=== PATIENT | male | born 1940 | race Caucasian/White ===

== ENCOUNTER 2016-10-21 23:50 | Inpatient (IN) | payer MEDICARE, OTHER ==
--- NOTE | ~2016-10-21 | CT55 ---
[facility] A Service of [facility] & [facility] RADIOLOGY TEXT RESULTS PATIENT: SILVIANO VELAZQUEZ LOCATION: A 319-01 : 41 UNIT #: [id number] AGE: [address]: Tamara Benton MD SEX: M ORDER DR: [id number] [facility] [address] [facility]. [place], [place] [address] [id number] I MR#: [id number] Acc #: [id number] NAME: SILVIANO VELAZQUEZ. : 1940 SEX: M STUDY DATE/TIME: 10/22/2016 5:55 UNIT: CEDOF ROOM: [id number] STUDY DESCRIPTION: CT Chest W Con Attending Physician: Tamara Benton M.D. Ordering Physician: Nick Roberson M.D. Primary Care Physician: Katerina Seth M.D. MEDICAL IMAGING REPORT This report is preliminary unless electronic signature is present EXAM CT chest with IV contrast COMPARISON December 27, 2015 and February 05, 2012. INDICATION 76-year-old male with lethargy and fever for 2 days. Prior CABG. COPD. TECHNIQUE This CT examination was performed with one or more of the following radiation dose reduction techniques: automatic exposure control, adjustment of mA and/or kV according to patient size, and iterative reconstruction. FINDINGS Axial CT imaging of the chest was performed after IV administration of 100 mL Isovue-370. Coronal and sagittal reformats were constructed. For findings below the diaphragm, please see separately dictated report of CT abdomen and pelvis with IV contrast on the same date. There is minimal bilateral gynecomastia. There are calcified mediastinal and hilar lymph nodes. No evidence of adenopathy. No evidence of sternotomy dehiscence. No acute fractures or suspicious osseous lesions. There is a nodular appearing density along the wall of the right trachea which have configuration suggesting adherent secretion on the coronal reformat. This appears new from 2016. Detailed evaluation of the lungs is limited by motion. There is no evidence of a pneumothorax. There is no significant pleural effusion. Minimal dependent atelectasis noted in the left lung base. There are questionable bronchoalveolar distribution opacities, seen primarily within the lingula and left lower lobe which may be artifactual and related to motion. Band-like opacity in the right upper lobe abutting the major fissure has configuration suggesting STS. [facility] A Service of [facility] RADIOLOGY TEXT RESULTS PATIENT: SILVIANO VELAZQUEZ LOCATION: [facility] 319-01 : 41 UNIT #: [id number] AGE: [address]: Tamara Benton MD SEX: M ORDER DR: atelectasis. Cardiomegaly is noted. There are changes of CABG. Coronary artery calcifications are noted. There is normal caliber of the thoracic aorta which is diffusely calcified. Normal caliber of the main pulmonary artery. The exam is not optimized for evaluation of peripheral pulmonary embolus but there is no evidence of central pulmonary embolus. Calcified granuloma in the right lower lobe. IMPRESSION 1. Detailed evaluation of the lungs is significantly limited by motion. There is no evidence of consolidative pneumonia, pneumothorax or significant pleural effusion. There are questionable tree-in-bud/bronchoalveolar distribution opacities seen multifocally within the lingula and left lower lobe perhaps reflecting an acute bronchiolitis or artifactually related to motion. Again there is no evidence of consolidative pneumonia. 2. Cardiomegaly and changes of CABG. No convincing evidence of pulmonary edema. 3. Nodular opacity within the trachea has a configuration suggesting adherent secretion. If definitive evaluation is desired, endoscopy could be performed or [address] imaging after resolution of acute illness. For findings below the diaphragm, please see separately dictated report CT abdomen and pelvis on the same date. Dictated by... Earl Caruso M.D. THIS IS AN ELECTRONICALLY VERIFIED REPORT Earl Caruso M.D. at 10/24/2016 10:36 AM ANA/jacques TD: 10/22/2016 09:19 JOB #: [id number] MEDICAL IMAGING REPORT Page 1 of 1 COPY
--- NOTE | ~2016-10-21 | CO ---
Unit #: [id number] #: [id number] Patient: SILVIANO VELAZQUEZ [id number] [address] [place], [place] [address] [id number] I MR#: [id number] NAME: SILVIANO VELAZQUEZ ROOM: 319 Age: 76 Sex: M Admission Date: 10/22/2016 : 1940 Attending Physician: Tamara Benton M.D. Primary Care Physician: Katerina Seth M.D. Consultation Date: 10/22/2016 CONSULTATION REPORT HISTORY AND EXAM Mr. Velazquez is a 76-year-old gentleman with a history of cirrhosis and resultant portal hypertension and multiple other comorbid conditions. He presented to the emergency room with altered mental status. Currently on his examination, he has clear sensorium. He had complained of some blood clots in his mouth occasionally, but he has normal stools. No hematochezia or melena. He does not have any dysphagia. He has had a history of esophageal varices that were treated endoscopically. He has been having normal stools and denies any blood per rectum. CT scan however showed some chronic thickness and stranding in the ascending colon, but it was unchanged from previous exam. CT of the chest showed no evidence of pneumonia, pneumothorax, or pleural effusion. There was a lot of motion artifact in the chest, so it is hard for the radiologist to tell if there is any bronchitis. No other acute findings in the chest are noted. CT the abdomen shows chronic changes, but nothing acute. CT of the head again had motion artifact, but there were no acute changes. PAST MEDICAL HISTORY Chronic anemia, chronic thrombocytopenia, GI bleed secondary to varices, reflux, diabetes with peripheral neuropathy, B12 deficiency, cirrhosis, portal hypertension, hypothyroidism, migraine headaches, blepharospasm, atherosclerotic coronary artery disease, peripheral vascular disease, cerebral vascular accident in the past, COPD, obstructive sleep apnea, benign prostatic hypertrophy, and hyperlipidemia. PAST SURGICAL HISTORY Hemorrhoid surgery, eyelid surgery, right foot surgery, vasectomy, coronary artery disease, EGD and colonoscopy as recently as 05/2016. FAMILY HISTORY Noncontributory. SOCIAL HISTORY Lives at home with his family. Former smoker. Denies use of alcohol. ALLERGIES Ibuprofen. PHYSICAL EXAMINATION VITAL SIGNS: Temperature is 97.7, pulse 72, respirations 20, blood pressure is 134/62. GENERAL: He is resting comfortably in bed with no acute distress. He is awake, alert, and oriented currently. HEENT: Unremarkable. Unit #: [id number] #: [id number] Patient: SILVIANO VELAZQUEZ CARDIAC: Regular rhythm. LUNGS: Clear. ABDOMEN: Soft. There is no localized tenderness, involuntary guarding, or rebound. EXTREMITIES: No edema. NEUROLOGIC: Grossly intact. DIAGNOSTIC STUDIES LABORATORY RESULTS: Chemistries are essentially normal except for a phosphorus of 1.4 that has been ordered repleted by the Medical Service. Lipase is gone down from 2.6 to 2.1 and urinalysis is negative for infection. IMAGING STUDIES: CT scan as discussed. In addition, CT of the head showed no acute changes. ASSESSMENT AND PLAN A 76-year-old gentleman with a history of cirrhosis, portal hypertension, other comorbid conditions, was admitted to the hospital and complaining of some blood in his mouth occasionally. He has normal stools and no hematochezia or melena. At this time, we will await his stool studies and see if there is any blood in the stool, he may need repeat endoscopic evaluation and sclerotherapy or banding for varices. Again, last colonoscopy in 05/2016 was essentially normal and there were similar CT findings at that time. Dictated by... Xavier Abraham/jean marie TD: 10/23/2016 03:59 JOB #: [id number] CONSULTATION REPORT Page 1 of 1 X Torsten Huizar MD CONSULTATION REPORT
--- NOTE | ~2016-10-21 | HP ---
Unit #: [id number] #: [id number] Patient: SILVIANO VELAZQUEZ [id number] [address] [place], [place] [address] [id number] I MR#: [id number] NAME: SILVIANO VELAZQUEZ. ROOM: 319 Age: 76 Sex: M Admission Date: 10/22/2016 : 1940 Attending Physician: Tamara Benton M.D. Primary Care Physician: Katerina Seth M.D. HISTORY AND PHYSICAL CHIEF COMPLAINT Dizziness. HISTORY OF PRESENT ILLNESS A 76 year old admitted because of dizziness. According to him, he did not pass out but he felt very dizzy and he laid down on his recliner one day prior to admission. Also, complaining of abdominal pain, left lower quadrant 8/10 since done day, currently 4/10. Also, had diarrhea but he does have irritable bowel syndrome. He has diarrhea and constipation alternately before also. He had vomiting since one day, and he has fevers since one day. He has generalized weakness since one day. According to him, he feels very weak. According to the , he does not seem that confused but thinks he is mostly very sleepy and slow to reaction. PAST MEDICAL HISTORY 1. History of coronary artery disease, status post bypass. 2. COPD. 3. Irritable bowel syndrome. 4. Chronic headache. 5. Chronic neck and back pain. 6. Diabetes. 7. Hypertension. 8. History of colitis and hematuria. 9. Cirrhosis with portal hypertension and varices. 10. History of peripheral neuropathy from diabetes. 11. GERD. 12. B12 deficiency. 13. Thrombocytopenia. 14. Chronic iron-deficiency anemia. 15. History of mild gastritis and ulcerative esophagitis. 16. History of hypothyroidism. 17. History of (1) spasm requiring Botox injections. 18. History of migraine variant with episodes of slurred speech. 19. History of peripheral vascular disease. 20. History of CVA. 21. Obstructive sleep apnea. 22. BPH. 23. History of hemorrhoidal surgery. 24. Hyperlipidemia. 25. Right foot surgery. 26. Vasectomy. 27. Multiple colon and rectal surgeries by Dr. Salvador. FAMILY HISTORY Unit #: [id number] #: [id number] Patient: SILVIANO VELAZQUEZ A Positive for hypertension. SOCIAL HISTORY Lives with . Former smoker. No alcohol. No illicit drugs. ALLERGIES Ibuprofen. CURRENT HOME MEDICATIONS 1. Albuterol two puffs inhalation daily p.r.n. 2. Advair 250 one Diskus inhalation b.i.d. 3. Flomax 0.4 b.i.d. 4. Dibucaine 30 g topically three times daily. 5. Coreg 12.5 p.o. b.i.d. 6. Pravastatin 40 daily. 7. Refresh eye drops four times daily. 8. Carafate 1 g four times daily. 9. Restasis one drop b.i.d. 10. Proscar 40 mg p.o. daily. 11. Nexium 40 p.o. b.i.d. 12. Synthroid 80 mcg daily. 13. Dazidox 10 mg three times daily. 14. Januvia 100 mg p.o. daily. 15. Lyrica 50 mg p.o. b.i.d. 16. Tylenol 650 q.4 p.r.n. fever and headache. REVIEW OF SYSTEMS Currently no headache. He has blurry vision chronically and hearing deficit chronically. Complaining of abdominal pain. No leg swelling. No skin rash. Has generalized weakness. No focal weakness, numbness, tingling. Reviewed 12-point system with him which are negative except as in HPI. PHYSICAL EXAMINATION VITAL SIGNS: Temperature 100.5, pulse 98, respirations 19, blood pressure 134/64. GENERAL: A 76 year old lying on bed, hard of hearing. Blurry vision present. Dry mucosa present. Alert and oriented x3. HEENT: Pupils equally reactive to light and accommodation. LUNGS: Clear to auscultation. No rhonchi. No crackles. ABDOMEN: Soft, tender in left lower quadrant. No guarding. No rigidity. Bowel sounds are present. HEART: S1, S2. Regular rhythm. No murmurs. EXTREMITIES: No pedal edema. SKIN: No rash. NEUROLOGIC: The patient is alert and oriented, able to provide history, not lethargic currently. DIAGNOSTIC STUDIES LABORATORY: Urinalysis negative for infection. INR 1.1. WBC 7.6, hemoglobin 10.5, platelets 69,000. Sodium 138, potassium 3.5, creatinine 0.8, glucose 201. AST 27, ALT 15, alkaline phosphatase 109, albumin 3.4. Phosphorous 1.4. Lipase 18. Lactic acid 2.1. Ammonia 63. IMAGING: CAT scan of the chest without contrast shows no pneumonia. CAT scan of the abdomen and pelvis shows possible acute recurrent colitis and possible acute cystitis. Unit #: [id number] #: [id number] Patient: SILVIANO VELAZQUEZ CAT scan of the head: No acute changes. ASSESSMENT AND PLAN A 76 year old admitted because of dizziness and abdominal pain. 1. Severe sepsis, most likely from colitis. Patient was given Levaquin and Flagyl. I am going to give him IV fluids and surgeon to see him. 2. Change in mental status: Most likely hepatic encephalopathy with elevated ammonia with history of cirrhosis. The patient started lactulose. Will continue with it. 3. Chronic obstructive pulmonary disease with acute hypoxic respiratory failure on chronic hypoxic respiratory failure: Continue with oxygen and DuoNeb. 4. Diabetes mellitus type 2: Uncontrolled. Continue sliding scale. 5. Hypertension: Well controlled. 6. No urinary tract infection or cystitis but the CAT scan shows cystitis but urinalysis is negative. 7. Deep venous thrombosis prophylaxis with bilateral sequential compression devices and gastrointestinal prophylaxis with Protonix. Dictated by Xavier Sparks/karina TD: 10/22/2016 16:20 JOB #: [id number] HISTORY AND PHYSICAL Page 1 of 1 X Tamara Benton MD X HISTORY AND PHYSICAL
--- NOTE | ~2016-10-21 | OR ---
Unit #: [id number] #: [id number] Patient: SILVIANO VELAZQUEZ [id number] [address] [place], [place] [address] [id number] Kimberlee MR#: [id number] NAME: SILVIANO VELAZQUEZ. ROOM: [facility] Date of Procedure: 10/24/2016 Admission Date: 10/22/2016 Surgeon: Hussein Morrow M.D. : 1940 Attending Physician: Tamara Benton M.D. Primary Care Physician: Katerina Seth M.D. OPERATIVE REPORT PREOPERATIVE DIAGNOSES 1. Anemia. 2. Heme-positive stools. 3. CT scan evidence of colitis, right colon. POSTOPERATIVE DIAGNOSES 1. Anemia. 2. Heme-positive stools. 3. CT scan evidence of colitis, right colon. PROCEDURES PERFORMED 1. Esophagogastroduodenoscopy. 2. Colonoscopy to cecum. ANESTHESIA Monitored anesthesia care. FINDINGS The patient was found to have distal esophageal varices, but no evidence or stigmata of bleeding. Lax GE junction. Normal colon except for mild internal hemorrhoids. SPECIMENS None. COMPLICATIONS None apparent. CONDITION The patient tolerated the procedure well. INDICATIONS FOR PROCEDURE The patient is a 76-year-old white male, who was found to have some anemia as well as heme-positive stools x4. CT scan showed possible colitis of the ascending colon. He presents at this time for evaluation by upper and lower endoscopy. DESCRIPTION OF PROCEDURE After obtaining informed consent, the patient was brought to the endoscopy suite and after adequate monitored anesthesia care, I had the endoscope placed through the mouth into the upper esophagus under direct vision. It Unit #: [id number] #: [id number] Patient: SILVIANO VELAZQUEZ was advanced to the second portion of the duodenum without difficulty and with the lumen always in view. The duodenum was normal as was the duodenal bulb. The pylorus opened normally. The distal stomach appeared normal, and on retroflexing back to the GE junction, there was a lax GE junction, but no abnormalities found in the proximal third, middle third, or incisura. On pulling back above the GE junction, the patient was found to have distal esophageal varices, but no stigmata of recent bleeding and no bleeding at this time. The remaining portion of the esophagus above the varices was within normal limits. Laryngeal structures were grossly normal as viewed from above. At this point in time, the colonoscope was placed through the anus and slowly advanced to the level of the cecum without difficulty and with the lumen always in view. The cecum was normal as was the ileocecal valve. There was no evidence of colitis. The ascending colon was normal as was the hepatic flexure, transverse colon, splenic flexure, descending colon, sigmoid colon, and rectum. On retroflexing in the rectum to the anorectal junction, there were some [id number] internal hemorrhoids. The scope was removed without difficulty. On digital examination, there was good sphincter tone. No masses palpable. The patient went from the endoscopy suite to the recovery area in stable condition. RECOMMENDATIONS Discontinue Levaquin and Flagyl. Change Protonix to p.o. Resume preop orders, meds, and diet. Dictated by... Xavier Urbano/jean marie TD: 10/24/2016 12:31 JOB #: [id number] CC: [facility] OPERATIVE REPORT Page 1 of 1 X Hussein Morrow MD X PROCEDURE OPERATIVE NOTE
--- NOTE | ~2016-10-21 | CR72 ---
[facility] A Service of [facility] & [facility] RADIOLOGY TEXT RESULTS PATIENT: SILVIANO VELAZQUEZ LOCATION: CEDOF 86844-55 : 41 UNIT #: [id number] AGE: [address]: Tamara Benton MD SEX: M ORDER DR: [id number] [facility] [address] [place], [place] [address] [id number] I MR#: [id number] #: [id number] NAME: SILVIANO VELAZQUEZ. : 1940 SEX: M STUDY DATE/TIME: 10/22/2016 UNIT: CED ROOM: 63288 STUDY DESCRIPTION: CR Chest Single View Portable Attending Physician: Zakiya Fox M.D. Ordering Physician: Nick Roberson M.D. Primary Care Physician: Katerina Seth M.D. MEDICAL IMAGING REPORT This report is preliminary unless electronic signature is present EXAM Portable chest 10/22 at 00:12 hours INDICATIONS Increasing lethargy with weakness and shortness of air over the last 2 days. History of hypertension. FINDINGS AP portable chest compared 07/11/2016. Cardiac and mediastinal contours are within normal limits. Patient is status post CABG. Lungs are clear except for granulomatous disease. No pneumothorax. IMPRESSION CABG change with old granulomatous disease. No acute findings in the chest. Dictated by... Torsten Guo Jr., M.D. THIS IS AN ELECTRONICALLY VERIFIED REPORT Torsten Guo Jr., M.D. at 10/22/2016 11:14 AM ROBBY/brandi TD: 10/22/2016 07:50 JOB #: [id number] MEDICAL IMAGING REPORT Page 1 of 1 COPY
--- NOTE | ~2016-10-21 | DS ---
Unit #: [id number] #: [id number] Patient: SILVIANO VELAZQUEZ [id number] [address] [place], [place] [address] [id number] I MR#: [id number] NAME: SILVIANO VELAZQUEZ. ROOM: 319 Age: 76 Sex: M Admission Date: 10/22/2016 : 1940 Discharge Date: 10/24/2016 Attending Physician: Tamara Benton M.D. Primary Care Physician: Katerina Seth M.D. DISCHARGE SUMMARY DISCHARGE DIAGNOSES 1. Anemia secondary to acute blood loss. 2. Esophageal distal varices. 3. Sepsis present on admission, resolved. No colitis. 4. Change in mental status secondary to hepatic encephalopathy. 5. Chronic obstructive pulmonary disease with acute hypoxic respiratory failure on chronic hypoxic respiratory failure, currently resolved. 6. Diabetes mellitus, type 2, uncontrolled. 7. Hypertension, uncontrolled. 8. No urinary tract infection. CONSULTATION Dr. Torsten Huizar. PROCEDURES Patient had EGD and colonoscopy, which showed distal esophageal varices. No active bleeding. No colitis. ALLERGIES Ibuprofen. DISCHARGE MEDICATIONS 1. Ventolin 2 puffs inhalation daily. 2. Advair 250/50 mcg inhalation b.i.d. 3. Flomax 0.4 p.o. b.i.d. 4. Tylenol 650 q.6 p.r.n. fever and headache. 5. Lyrica 50 mg p.o. b.i.d. 6. Januvia 100 p.o. daily. 7. Dibucaine 30 g topically t.i.d. p.r.n. arthritic pain. 8. Coreg 12.5 p.o. b.i.d. 9. Pravastatin 40 daily. 10. Refresh eyedrops 4 times daily. 11. Carafate 1 g 4 times daily. 12. Restasis 1 drop b.i.d. 13. Proscar 40 daily. 14. Oxycodone 10 mg 3 times daily p.r.n. pain. 15. Protonix 40 p.o. b.i.d. 16. Synthroid 88 mcg p.o. daily. HOSPITALIZATION COURSE This is a 76-year-old admitted because of dizziness and abdominal pain. Sepsis: Initial diagnosis of colitis, but patient had EGD and colonoscopy, which did not show any colitis. Initially, Levaquin and Unit #: [id number] #: [id number] Patient: SILVIANO VELAZQUEZ Flagyl had been started, but surgeon discontinued it. Sepsis resolved. Change in mental status secondary to hepatic encephalopathy: Patient received lactulose. Currently, patient alert and oriented x3. Anemia with acute blood loss: Positive occult blood. Patient had EGD and colonoscopy, which showed distal esophageal varices. Patient will continue Protonix 40 p.o. b.i.d. Colonoscopy is normal. Chest pain: Troponin is negative. EKG negative. Most likely secondary to esophagitis, atypical. Currently, patient will have advanced diet. If tolerated, patient will be discharged home. Cirrhosis with hepatic encephalopathy: Patient will follow up with family physician as an outpatient. COPD: Stable. DISCHARGE INSTRUCTIONS 1. Patient will be discharged home. 2. Follow up with family physician in one week's time. 3. Follow up with Dr. Salvador in three weeks' time. 4. Patient will have home health and physical therapy as an outpatient as per 's recommendations. Discussed with . Dictated by... Xavier Sparks TD: 10/25/2016 05:17 JOB #: [id number] DISCHARGE SUMMARY Page 1 of 1 X Tamara Benton MD X DISCHARGE SUMMARY
--- NOTE | ~2016-10-21 | CT2 ---
[facility] A Service of [facility] & [facility] RADIOLOGY TEXT RESULTS PATIENT: SILVIANO VELAZQUEZ LOCATION: A 319-01 : 42 UNIT #: [id number] AGE: [address]: Tamara Benton MD SEX: M ORDER DR: [id number] [facility] [address] [facility]. [place], [place] [address] [id number] I MR#: [id number] #: [id number] NAME: SILVIANO VELAZQUEZ. : 1940 SEX: M STUDY DATE/TIME: 10/22/2016 5:23 UNIT: CEDOF ROOM: [id number] STUDY DESCRIPTION: CT Abd and Pelv W Cont Attending Physician: Tamara Benton M.D. Ordering Physician: Nick Roberson M.D. Primary Care Physician: Katerina Seth M.D. MEDICAL IMAGING REPORT This report is preliminary unless electronic signature is present EXAM CT abdomen and pelvis with IV contrast. COMPARISON May 22, 2016 and December 24, 2012. INDICATION 76-year-old male with lethargy, fever, generalized abdominal pain and diarrhea for [address] imaging of the abdomen and pelvis was performed after IV administration of 100 mL of Isovue-370. Coronal and sagittal reformats were constructed. This CT exam was performed with one or more of the following radiation dose reduction techniques: automatic exposure control, adjustment of mA and/or kV according to patient size, and iterative reconstruction. FINDINGS For findings above the diaphragm today please see separately dictated report of CT chest with IV contrast on the same date. There has been prior cholecystectomy. There is mild splenomegaly, grossly stable from May 2016. Pancreas, adrenal glands, and kidneys appear within normal limits. There is no hydronephrosis or hydroureter. No renal or ureteral calculus. Evaluation of the urinary bladder is limited by under distension. Urinary bladder wall appears diffusely mildly thickened, perhaps due to under distension. Acute cystitis is thought less likely. Minimal central prostatic calcifications are noted, a nonspecific finding. These are likely stable from 2015 on May 22. There is no evidence of bowel obstruction. There is abnormal thickening of the cecum and majority of the ascending colon with adjacent fat STS. [facility] A Service of [facility] RADIOLOGY TEXT RESULTS PATIENT: SILVIANO VELAZQUEZ [id number] [birth year] UNIT #: [id number] AGE: [address]: Tamara Benton MD SEX: M ORDER DR: dana. The thickening may not be appreciably changed from May 22, 2016. The fat stranding in the inferior right pericolic gutter may reflect stable fat stranding which was noted in this location in May 2016. However, recurrent acute colitis cannot be excluded. No evidence of an acute appendicitis. No free fluid or pneumoperitoneum. There is mild aneurysm of the infrarenal abdominal aorta which appears increased in caliber from May 2016, at which time it measured up to 2.9 cm as compared to 3 cm currently. There is a calcified and noncalcified plaque seen at the level of the aneurysm. The abdominal aorta is diffusely calcified with calcifications involving the origins of the celiac, superior mesenteric, and bilateral renal arteries. 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 There is also [id number] apparent stenosis at the origin of the right renal artery with mild stenosis at the origin of the left renal artery. No evidence of venous thrombosis. There is a retroperitoneal lymph node at the level of the diaphragmatic radha measuring up to a centimeter in short axis, stable from May 2016, favoring a reactive lymph node. 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 Degenerative disc disease is at its worst at L4-L5 and L5-S1. Moderate posterior disc protrusion at L4-L5 with a small posterior disc protrusion at L3-L4. No acute fractures or suspicious osseous lesions. IMPRESSION 1. For findings above the diaphragm please see separately dictated report of CT chest with IV contrast on the same date. 2. Thickening of the cecum and ascending colon which may not be appreciably changed from May 22, 2016. There is some adjacent fat stranding in the right pericolic gutter, which also may be stable since that time. Recurrent acute colitis cannot be excluded. Given the thickening, nonemergent colonoscopy is recommended for further evaluation of the colon and to exclude the possibility of neoplasm. 3. Urinary bladder is nondistended and appears mildly thickened of uncertain acuity. Correlation to exclude signs of acute cystitis recommended. 4. No evidence of bowel perforation or obstruction. 5. Stable mild splenomegaly. Prior cholecystectomy. 6. Infrarenal abdominal aortic aneurysm measuring up to 3 cm, perhaps mildly increased from 2.9 cm on May 22, 2016. Consider CT abdomen and pelvis followup in 1 year to document stability. 7. Arterial calcifications in the abdomen and pelvis with stenosis of multiple branch vessels of the abdominal aorta as described in the body of the report. 8. 1 cm retroperitoneal short axis lymph node at the level of diaphragmatic radha is stable from May 22, 2016 and perhaps reactive. 9. Multilevel degenerative changes of the lumbar spine. [facility]. [facility] A Service of [facility] RADIOLOGY TEXT RESULTS PATIENT: SILVIANO VELAZQUEZ LOCATION: [facility] : 41 UNIT #: [id number] AGE: [address]: Tamara Benton MD SEX: M ORDER DR: Dictated by... Earl Caruso M.D. THIS IS AN ELECTRONICALLY VERIFIED REPORT Earl Caruso M.D. at 10/24/2016 11:07 AM ANA/hellen TD: 10/22/2016 09:19 JOB #: [id number] MEDICAL IMAGING REPORT Page 1 of 1 COPY
--- NOTE | ~2016-10-21 | EKG ---
PATIENT: SILVIANO VELAZQUEZ UNIT #: [id number] Ventricular Rate: 93 BPM Atrial Rate: 93 BPM P-R Interval: 156 ms QRS Duration: 98 ms Q-T Interval: 398 ms QTC Calculation(Bezet): 494 ms P [place]: 78 degrees Calculated R [place]: 61 degrees Calculated T [place]: 17 degrees Diagnosis Line: Normal sinus rhythm Diagnosis Line: Prolonged QT Diagnosis Line: Abnormal ECG Diagnosis Line: When compared with ECG of 21-MAY-2016 07:26, Diagnosis Line: No significant change was found Diagnosis Line: Confirmed by MARIO RODRÍGUEZ MD ([id number]) on 10/22/2016 Diagnosis Line: 10:47:58 PM INTERPRETING MD: MARCOS FARRELL
--- NOTE | ~2016-10-21 | EKG ---
PATIENT: SILVIANO EVLAZQUEZ UNIT #: [id number] Ventricular Rate: 72 BPM Atrial Rate: 72 BPM P-R Interval: 156 ms QRS Duration: 96 ms Q-T Interval: 446 ms QTC Calculation(Bezet): 488 ms P [place]: 83 degrees Calculated R [place]: 81 degrees Calculated T [place]: 62 degrees Diagnosis Line: Normal sinus rhythm Diagnosis Line: Prolonged QT Diagnosis Line: Abnormal ECG Diagnosis Line: When compared with ECG of 22-OCT-2016 00:14, Diagnosis Line: No significant change was found Diagnosis Line: Confirmed by MARIO RODRÍGUEZ MD ([id number]) on 10/23/2016 Diagnosis Line: 10:29:14 PM INTERPRETING MD: MARCOS FARRELL
--- NOTE | ~2016-10-21 | CT71 ---
[facility] A Service of [facility] RADIOLOGY TEXT RESULTS PATIENT: SILVIANO VELAZQUEZ LOCATION: CEDOF [id number] : 41 UNIT #: [id number] AGE: [address]: Tamara Benton MD SEX: M ORDER DR: [id number] [facility] [address] [facility] [place], [place] [address] [id number] I MR#: [id number] Acc #: [id number] NAME: SILVIANO VELAZQUEZ. : 1940 SEX: M STUDY DATE/TIME: 10/22/2016 02:18 UNIT: CEDOF ROOM: [id number] STUDY DESCRIPTION: CT Head Wo Contrast Attending Physician: Zakiya Fox M.D. Ordering Physician: Nick Roberson M.D. Primary Care Physician: Katerina Seth M.D. MEDICAL IMAGING REPORT This report is preliminary unless electronic signature is present EXAM Head CT, 10/22 at 02:28 INDICATIONS Confusion and lethargy at home for [address] exam was performed with one or more of the following radiation dose reduction techniques: automatic exposure control, adjustment of mA and/or kV according to patient size, and iterative reconstruction. FINDINGS Axial images were obtained from base to vertex without contrast. Comparison is made with 07/11/2016. Study is slightly motion degraded. There is mild generalized atrophy. Ventricular size and configuration are normal. No acute infarct or hemorrhage. No masses. No skull fractures. Dictated by... Torsten Guo Jr., M.D. THIS IS AN ELECTRONICALLY VERIFIED REPORT Torsten Guo Jr., M.D. at 10/22/2016 11:15 AM ROBBY/xin TD: 10/22/2016 08:30 JOB #: [id number] MEDICAL IMAGING REPORT Page 1 of 1 COPY
[~2016-10-21 23:50] MED LIST: ACETAMINOPHEN PO; ACETONIDE CREAM; ACETONIDE TOP; ADVAIR 250-501 EAC1 IH; ADVAIR 250-501 EACH IH; ALBUTEROL17 GM INH; ANTI-ITCH28 GM TP; ANUSOL SUPP1 SUPP PR; ANUSOL-HC25 MG/SUPP RC; ASPIRIN EC81 M1 PO; ASPIRIN PO; ASPIRIN325 M1 PO; ASPIRIN81 M2 PO; ASPIRIN81 MG PO; ATENOLOL PO; ATROVENT HFA12.9 GM INH; ATROVENT INH; AZASITE2.5 ML OP; AZASITE2.5 ML OU; B12 HEALTH1000 MCG/1 PO; BACLOFEN10 MG PO; BACTRIM DS TABL1 TAB PO; BENTYL20 MG PO; BROMFENAC SODI2.5 ML OP; BROMFENAC SODI2.5 ML OU; CARAFATE1 G PO; CIPRO PO; COREG PO; COREG12.5 MG PO; CYANOCOBALAM1000 MCG PO; DAZIDOX10 MG PO; DIBUCAINE TP; ERYTHROMYC PO; ERYTHROMYCIN PO; ERYTHROMYCIN60 ML EXT; FELDENE20 MG PO; FENOFIBRATE160 MG PO; FERROUS SULFATE PO; FIORICET; FIORICET W/CODE1 CAP PO; FISH OIL 1,0001 CAP PO; FISH OIL SOFTGE1 CA1 PO; FLAGYL PO; FLAX SEED OIL1000 M1 PO; FLOMAX0.4 M1 PO; FLOMAX0.4 MG PO; GABAPENTIN400 M2 PO; GARLIC OIL1000 MG PO; GARLIC PO; GLIPIZIDE10 MG PO; GLUCOPHAGE XR500 MG PO; GLUCOTROL XL10 MG PO; GLYBURIDE PO; GLYNASE PO; HEMORRHOIDAL TP; HUMIBID-LA600 MG PO; HYDROCODONE/APA1 T16 PO; HYDROCORTISON28.4 G3 TP; HYDROCORTISONE0.9 GM TP; IRON SUPPLEMENT1 TAB PO; JANUVIA PO; KCL PO; LASIX PO; LEVAQUIN750 MG PO; LEVEMIR SUBQ; LEVEMIR100 U/ML SUBQ; LEVEMIR100 UNITS/; LIDODERM30 EA; LORTAB 10/500 T1 TAB PO; LYRICA50 MG PO; METFORMIN HCL1000 M1 PO; METFORMIN HCL500 M1 PO; METFORMIN PO; MICRONASE5 M1 PO; MOUTH KOTE; MUCINEX D; MUCINEX DM ER1 EACH PO; MYCOLOG II CREA15 GM TOP; NASONEX17 GM; NEURONTIN PO; NEURONTIN300 MG PO; NEXIUM PO; NEXIUM40 MG/PACK PO; NITRODISC0.4 MG EXT; NITROGLYCERIN0.4 MG SL; NITROGLYGERIN0.4 MG SL; NITROGYLCERIN SUBLINGUAL; NITROSTAT0.4 MG; NYSTATIN-TRIAMC15 G1 TP; OXYCODONE HCL5 M1 PO; PRAVASTATIN SOD40 MG PO; PREDNISONE10 MG; PREVIDENT DT; PROLENSA1.6 ML OP; PROSCAR5 MG PO; RECTIV30 GM RC; REFRESH DRY EYE15 ML OU; REFRESH EYE DRO50 E1 OP; REFRESH EYE DRO50 EA OP; REFRESH PLUS OU; REGLAN PO; REGLAN10 MG PO; RESTASIS32 EA OP; RESTASIS32 EA OU; RESTORIL15 MG PO; SOOTHE EYE; SOOTHE XP EYE D15 ML OU; SPIRIVA18 MCG INH; SYNTHROID PO; SYNTHROID0.05 MG PO; SYNTHROID75 MCG PO; SYNTHROID88 MCG PO; SYSTANE ULTRA; TEMAZEPAM PO; ZANAFLEX4 M1 PO; ZOCOR PO; [UNRECOGNIZED DRUG - CODE] DT; [UNRECOGNIZED DRUG - OTHER] OU; [UNRECOGNIZED DRUG - OTHER] PO; [UNRECOGNIZED DRUG - OTHER] TOP
[2016-10-22 00:32] LABS: URINE SOURCE CLEAN CATCH
[2016-10-22 00:37] LABS: URINE APPEARANCE CLEAR; URINE BILIRUBIN NEG (NEG); URINE BLOOD NEG (NEG); URINE COLOR DK YELLOW; URINE GLUCOSE NEG (NEG); URINE KETONE TRACE (NEG); URINE LEUKOCYTE ESTERASE NEG (NEG); URINE NITRATE NEG (NEG); URINE PH 7.5 (5-8); URINE PROTEIN NEG (NEG)
[2016-10-22 00:40] LABS: CULTURE INDICATED? NO
[2016-10-22 00:49] LABS: BASOPHIL% 0.2 % (0-2.5); EOSINOPHIL# 0.1 X10e3 (0-0.7); EOSINOPHIL% 1.6 % (0.0-7.0); HEMATOCRIT 31.7 % (38.0-50.0); HEMOGLOBIN 10.5 gm/dL (13.0-16.0); LYMPHOCYTE# 0.6 X10e3 (1.0-3.5); LYMPHOCYTE% 7.9 % (17.0-45.0); MEAN CELL VOLUME 108.5 FL (83-96); MEAN CORPUSCULAR HEMOGLOBIN 35.9 PG (28-34); MEAN CORPUSCULAR HGB CONC 33.1 g/dL (30-36); MEAN PLATELET VOLUME 8.6 FL (6.5-11.5); MONOCYTE# 0.6 X10e3 (0-1.0); MONOCYTE% 7.6 % (3.0-12.0); NEUTROPHIL# 6.3 X10e3 (1.5-7.1); NEUTROPHIL% 82.7 % (40-75); RED BLOOD COUNT 2.92 X10e (3.90-5.60); RED CELL DISTRIBUTION WIDTH 15.3 % (11.0-15.5); WHITE BLOOD COUNT 7.6 X10e3 (4.0-10.5)
[2016-10-22 00:50] LABS: INR 1.1; PARTIAL THROMBOPLASTIN TIME 27.7 SECONDS (23.5-31.3); PROTHROMBIN TIME (PATIENT) 11.9 SECONDS (9.6-11.5)
[2016-10-22 00:51] LABS: DIFF IND YES; PLATELET COUNT 69 X10e3 (140-420)
[2016-10-22 00:55] LABS: ANISOCYTOSIS SL; OVALOCYTES PRESENT; PLATELET ESTIMATE DECREASED (NORMAL); TARGET CELLS SL
[2016-10-22 00:58] LABS: ALBUMIN SERUM 3.4 g/dL (3.5-5.0); BILIRUBIN, DIRECT 0.1 mg/dL (0.0-0.2); BILIRUBIN,INDIRECT 1.1 mg/dL (0.0-0.9); BILIRUBIN,TOTAL 1.2 mg/dL (0.2-2.0); BUN/CREATININE RATIO 18.75; CALCIUM SERUM 8.4 mg/dL (8.4-10.2); CREATININE SERUM 0.8 mg/dL (0.6-1.4); GLOM FILT RATE Estimated 87.4 mL/min (>60); MAGNESIUM 1.6 mg/dL (1.6-3.0); PHOSPHOROUS 1.4 mg/dL (2.5-4.6); POTASSIUM 3.5 mmol/L (3.5-5.1); PROTEIN TOTAL SERUM 7.6 g/dL (6.0-8.3)
[2016-10-22 01:48] LABS: POC - CKMB <1.0 ng/mL (0.0-7.9); POC - TROPONIN <0.05 ng/mL (<=0.05)
[2016-10-22 06:08] LABS: POC - CKMB <1.0 ng/mL (0.0-7.9); POC - TROPONIN <0.05 ng/mL (<=0.05)
[2016-10-23 06:37] LABS: HEMOGLOBIN 9.2 gm/dL (13.0-16.0); MEAN CELL VOLUME 109.7 FL (83-96); MEAN CORPUSCULAR HGB CONC 32.8 g/dL (30-36); MEAN PLATELET VOLUME 8.8 FL (6.5-11.5); RED BLOOD COUNT 2.55 X10e (3.90-5.60); WHITE BLOOD COUNT 6.4 X10e3 (4.0-10.5)
[2016-10-23 06:49] LABS: ALBUMIN SERUM 2.9 g/dL (3.5-5.0); BILIRUBIN,TOTAL 1.1 mg/dL (0.2-2.0); BUN/CREATININE RATIO 18.33; CALCIUM SERUM 7.9 mg/dL (8.4-10.2); CREATININE SERUM 0.6 mg/dL (0.6-1.4); GLOM FILT RATE Estimated 98.4 mL/min (>60); POTASSIUM 3.5 mmol/L (3.5-5.1); PROTEIN TOTAL SERUM 6.5 g/dL (6.0-8.3)
[2016-10-23 15:06] LABS: %MB 2.1 % (0.0-4.0); MB 1.3 ng/ml
[2016-10-24 06:14] LABS: HEMATOCRIT 28.2 % (38.0-50.0); HEMOGLOBIN 9.2 gm/dL (13.0-16.0); MEAN CORPUSCULAR HEMOGLOBIN 35.9 PG (28-34); MEAN CORPUSCULAR HGB CONC 32.6 g/dL (30-36); MEAN PLATELET VOLUME 8.5 FL (6.5-11.5); RED BLOOD COUNT 2.56 X10e (3.90-5.60); RED CELL DISTRIBUTION WIDTH 15.6 % (11.0-15.5); WHITE BLOOD COUNT 4.2 X10e3 (4.0-10.5)
[2016-10-24 07:29] LABS: CREATININE SERUM 0.6 mg/dL (0.6-1.4); GLOM FILT RATE Estimated 98.4 mL/min (>60); POTASSIUM 3.3 mmol/L (3.5-5.1)
[2016-10-24] MEDS ORDERED: PROTONIX PO (13:41)
== END 2016-10-24 18:27 | disposition home health service (06) | DRG 871 ==
LOC: CED 23:50 → CEDOF 10-22 05:55 → C3A PCU 10-22 11:35
PROVIDERS: Emergency Medicine; Internal Medicine; Specialist; Surgery
PROC: 0DJ08ZZ Inspection of Upper Intestinal Tract, Via Natural or Artificial Opening Endoscopic (ICD-10-PCS; principal; 2016-10-24 09:00)
PROC: 0DJD8ZZ Inspection of Lower Intestinal Tract, Via Natural or Artificial Opening Endoscopic (ICD-10-PCS; 2016-10-24 09:00)
DX: A41.9 Sepsis, unspecified organism (principal); J96.21 Acute and chronic respiratory failure with hypoxia; I85.10 Secondary esophageal varices without bleeding; K76.6 Portal hypertension; D62 Acute posthemorrhagic anemia; E11.65 Type 2 diabetes mellitus with hyperglycemia; R65.20 Severe sepsis without septic shock; D64.9 Anemia, unspecified; K74.60 Unspecified cirrhosis of liver; K72.90 Hepatic failure, unspecified without coma; E03.9 Hypothyroidism, unspecified; J44.9 Chronic obstructive pulmonary disease, unspecified; I49.3 Ventricular premature depolarization; H54.0 Blindness, both eyes; K64.8 Other hemorrhoids; Z86.73 Personal history of transient ischemic attack (TIA), and cerebral infarction without residual deficits; G62.9 Polyneuropathy, unspecified; E78.5 Hyperlipidemia, unspecified; I25.10 Atherosclerotic heart disease of native coronary artery without angina pectoris; Z95.1 Presence of aortocoronary bypass graft; I25.2 Old myocardial infarction; Z87.891 Personal history of nicotine dependence; I10 Essential (primary) hypertension; Z88.6 Allergy status to analgesic agent; G43.909 Migraine, unspecified, not intractable, without status migrainosus; Z98.52 Vasectomy status; Z82.49 Family history of ischemic heart disease and other diseases of the circulatory system; Z79.84 Long term (current) use of oral hypoglycemic drugs; K58.2 Mixed irritable bowel syndrome
CPT/HCPCS: 36415; 70450; 71010; 71260; 74177; 80048; 80053; 80076; 81003; 82140; 82150; 82274; 82550; 82553; 82947; 83605; 83630; 83690; 83735; 84100; 84484; 85025; 85027; 85610; 85730; 87040; 87177; 87209; 87493; 93005; 94640; 94664; 94760; 96360; 96361; 97162; 97167; 99285; C9113; G8978-GP; G8979-GP; G8980-GP; G8987-GO; G8988-GO; G8989-GO; J0696; J1956; J2405; Q9967